=== PATIENT | female | born 1965 | race Caucasian/White ===

== ENCOUNTER 2017-01-14 17:32 | Emergency (ER) | payer OTHER ==
[2017-01-14 17:39] VITALS: BP 172/90
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
== END 2017-01-14 18:39 | disposition home or self-care (01) ==
LOC: ED 17:32
DX: Z02.89 Encounter for other administrative examinations (principal)
CPT/HCPCS: 99282